=== PATIENT | female | born 1990 | race Caucasian/White ===

== ENCOUNTER 2017-11-13 17:08 | Emergency (ER) | payer MEDICAID ==
[~2017-11-13] VITALS: Ht 142.2 cm; Wt 45.5 kg
[2017-11-13 17:15] VITALS: BP 112/79
[2017-11-13 19:15] VITALS: PULSE 93; TEMP 97.6
== END 2017-11-13 19:15 | disposition home or self-care (01) ==
LOC: COL.ER 17:08
DX: T87.9 Unspecified complications of amputation stump (principal)